=== PATIENT | female | born 1965 | race Two or more races ===

== ENCOUNTER 2016-07-18 17:40 | Emergency (ER) | payer MEDICAID ==
[2016-07-18 17:50] VITALS: BP 136/79; PULSE 83; RESP 14; TEMP 97.9; O2SAT 96
--- NOTE | 2016-07-18 19:00 | UCPHY ---
H & P Time Seen by Provider: 07/18/16 17:52 Patient Type: Established HPI/ROS: This patient returns approximately a month after I saw her on 06/12/2016 40 effusion after an injury. She has ongoing symptoms and has been frustrated by inability to did not see the primary care physician despite multiple calls. She explains that the symptoms worsen when she is on her feet for long periods of time at work. She has had difficulty working the past 2 days due to the symptoms. She reports achiness inside the knee. She has persistent mild swelling. No new injuries since her original presentation a month ago. She also complains of a cough and nasal congestion. She has had difficulty sleeping due to the frequent coughing. Cough started 5 days prior to arrival. ROS: No fevers or chills. HEENT: Nasal congestion without other complaints pulmonary: No pleuritic pain or dyspnea cardiovascular: No lightheadedness she reports no calf swelling or pain. Musculoskeletal: No feeling of instability to the knee 7 point ROS is otherwise negative Past Medical/Surgical History: I did a knee tap during her last visit that turned up negative for crystals. She had unequal mix of leukocytes and WBCs without count of around 17,000 V2 that time. Otherwise healthy Smoking Status: Never smoked Physical Exam: Physical Exam Vital signs are normal. General: Pleasant [place] female No acute distress HEENT: Nose: Positive congestion but no sinus tenderness to percussion oropharynx is clear with no dysphonia ears: External canals and TMs clear bilaterally Lungs: Occasional cough but no rales, rhonchi or wheeze. Cardiovascular: Regular rate and rhythm with no murmur gallop rub. No calf edema to the right lower extremity Extremities: Atraumatic normal except for right knee Right knee: Patient reports increased pain with flexion of the knee. There is very mild swelling. No increased pain with movement of her patella or patellar anxiety. Erendira's is negative for laxity. Varus and valgus stress without increase in pain or laxity. There is no discoloration to the knee. No warmth to touch. Pulses are 2+ in the dorsalis pedis and popliteal on the affected leg. Skin: No rash or pallor. Neuro: Alert with no sensorimotor deficits. Initial differential diagnosis: URI with cough. Doubt bronchitis, it chronic knee pain-likely meniscal injury. Patellofemoral syndrome is also possibility but less likely I ruled out gout during her previous visit. Constitutional: Initial Vital Signs Temperature (C) 36.6 C 07/18/16 17:48 Heart Rate 83 07/18/16 17:48 Respiratory Rate 14 07/18/16 17:48 Blood Pressure 136/79 H 07/18/16 17:48 O2 Sat (%) 96 07/18/16 17:48 O2 Delivery Mode Room Air Allergies/Adverse Reactions: chlorpheniramine [From Codeine Antitussive Cough] Allergy (Intermediate, Verified 07/18/16 17:46) blister on tongue codeine [From Codeine Antitussive Cough] Allergy (Intermediate, Verified 17:46) blister on tongue phenylephrine HCl [From Codeine Antitussive Cough] Allergy (Intermediate, Verified 07/18/16 17:46) blister on tongue Home Medications: Medication Instructions Recorded IBUPROFEN 06/12/16 Indomethacin [Indocin 25 mg (RX)] 50 mg PO TID PRN #50 cap 06/12/16 Albuterol Hfa Anes Only [Proair 2 puffs IH Q4 PRN #1 mdi 07/18/16 Hfa Icu (*)] MDM/Departure - MDM ED Course/Re-evaluation: The patient has a neoprene knee brace with her. I counseled her regarding her knee injury recommending that she see an branch specialist for further evaluation. She understands the plan. She will take NSAIDs as needed for discomfort in the meantime. I also counseled her regarding her URI with cough. No clinical evidence of lower respiratory infection other concerning findings. Also no clinical evidence of DVT - Depart Disposition: Home, Routine, Self-Care Clinical Impression: Viral URI with cough Knee pain, right Qualifiers: Chronicity: acute Qualifier Code: (M25.561) Pain in right knee Condition: Fair Instructions: Upper Respiratory Infection (ED), Arthralgia (ED) Additional Instructions: Diagnosis: 1. Knee pain 2. URI with cough Plan: [id number] mg per 6 hours as needed for pain and swelling For cold and cough-albuterol inhaler with spacer for cough, wheeze or shortness of breath Humidifier Guaifenesin at night for cough or other [id number] cough suppressant. Call Dr. Rouse-branch specialist range follow-up appointment for further evaluation of her knee. Prescriptions: Albuterol Hfa Anes Only [Proair Hfa Icu (*)] 2 puffs IH Q4 PRN #1 mdi PRN Reason: Wheezing Referrals: NONE *PRIMARY CARE P,. [Primary Care Provider] - As per Instructions Louis Rouse MD [Medical Doctor] - As per Instructions - PQRS PQRS Measurement: NA
== END 2016-07-18 19:21 | disposition home or self-care (01) ==
LOC: CED 17:40
DX: M25.561 Pain in right knee (principal); J06.9 Acute upper respiratory infection, unspecified
CPT/HCPCS: 99214-PO; G0463-PO

== ENCOUNTER 2018-05-30 15:18 | Emergency (ER) | payer MEDICAID ==
[2018-05-30 15:29] VITALS: BP 135/92
--- NOTE | 2018-05-30 15:57 | EDPHY ---
H & P Time Seen by Provider: 05/30/18 15:41 HPI/ROS: This patient presents with atraumatic onset of right 1st metatarsophalangeal joint pain and redness that is moderate baseline more severe with walking. She explains that the symptoms followed increase protein in alcohol intake from Thanksgiving. In reviewing her prior visits she presented in 2011 with pain and redness this same area with questions cellulitis versus gout. Patient also mention this prior episode. She reports mild improvement from ibuprofen with no other exacerbating factors. She also relates that while she normally only eats chicken me she had pork over the holidays. ROS: Constitutional: No fevers Musculoskeletal: No injuries recently. Integumentary: No skin rash other slight erythema to the 1st metatarsophalangeal joint region Neuro: No numbness or tingling 5 point review of symptoms is performed and otherwise negative with exception of pertinent positives and negatives listed in HPI and ROS Past Medical/Surgical History: No immunocompromise Smoking Status: Never smoked Physical Exam: Physical Exam Vital signs are normal. General: No acute distress Eyes: Pupils equal and react to light. Extraocular motions are intact. Lungs: No respiratory distress. Cardiac: Brisk capillary refill is intact throughout. Pulses are 2+ and symmetric in the affected extremity. Skin: No rash or pallor. Extremities: Atraumatic normal except for right foot Right foot: Patient has swelling erythema tenderness to the 1st metatarsophalangeal joint. Pain increases with great toe movement. There is no other erythema to the foot. No skin injuries. Neuro: Alert and oriented x3 with no sensorimotor deficits. Initial differential diagnosis: Gout, other mono arthropathy, doubt septic joint given benign appearance, doubt cellulitis Constitutional: Initial Vital Signs Temperature (C) 36.5 C 05/30/18 15:26 Heart Rate 86 05/30/18 15:26 Respiratory Rate 18 05/30/18 15:26 Blood Pressure 135/92 H 05/30/18 15:26 O2 Sat (%) 96 05/30/18 15:26 O2 Delivery Mode Room Air Allergies/Adverse Reactions: chlorpheniramine [From Codeine Antitussive Cough] Allergy (Intermediate, Verified 05/30/18 15:25) blister on tongue codeine [From Codeine Antitussive Cough] Allergy (Intermediate, Verified 15:25) blister on tongue phenylephrine HCl [From Codeine Antitussive Cough] Allergy (Intermediate, Verified 05/30/18 15:25) blister on tongue Home Medications: Medication Instructions Recorded IBUPROFEN 06/12/16 Indomethacin [Indocin 25 mg (RX)] 50 mg PO TID PRN #50 cap 05/30/18 traMADol [Ultram 50 mg (*)] 50 - 100 mg PO Q4 PRN #20 tab 05/30/18 MDM/Departure - [facility] ED Course/Re-evaluation: Given 1 prior episode of similar presentation and onset of the symptoms after increased need alcohol intake, I think this patient is having a gouty attack. I counseled regarding this. She had x-rays of her foot on previous presentation with no significant findings. We discussed potential workup including imaging lab work, the patient would like to proceed with empiric treatment for presumed gout understand the need to return should she develop worsening symptoms despite treatment plan of Indocin, postop shoe, reduction of protein intake and alcohol. She will follow up with primary care physician. - Depart Disposition: Home, Routine, Self-Care Clinical Impression: Gout attack Qualifiers: Gout site: foot Gout etiology: unspecified cause Laterality: right Qualified Code(s): M10.9 - Gout, unspecified Condition: Good Instructions: Low Purine Diet (ED), Gout (ED) Additional Instructions: Diagnosis: Gouty attack Plan: Drink plenty fluids Decrease her protein intake Hold off on alcohol until this episode has resolved Indocin nonsteroidal anti-inflammatory. Do not take ibuprofen while taking Indocin since they in the same drug class ("NSAIDs") Tylenol in addition if needed for pain Tramadol for pain control in addition if needed for pain that prevents sleep. No driving, alcohol work on tramadol Postop shoe when you are up and about. Follow-up with primary care physician listed below or primary care doctor of her choice for a recheck in 3-5 days if symptoms are not improving with treatment plan Return emergency department for any significant worsening despite the treatment plan Stand Alone Forms: Work Excuse Prescriptions: Indomethacin [Indocin 25 mg (RX)] 50 mg PO TID PRN #50 cap PRN Reason: pain traMADol [Ultram 50 mg (*)] 50 - 100 mg PO Q4 PRN #20 tab PRN Reason: breakthrough pain Referrals: NONE *PRIMARY CARE P,. [Primary Care Provider] - As per Instructions Elder Wen MD [[facility] – [place] Primary Care Provider] - As per Instructions
== END 2018-05-30 16:09 | disposition home or self-care (01) ==
LOC: CED 15:18
DX: M10.9 Gout, unspecified (principal)
CPT/HCPCS: L4386